=== PATIENT | male | born 1975 | race Caucasian/White ===

== ENCOUNTER 2018-07-10 18:05 | Emergency (ER) | payer OTHER ==
[~2018-07-10] VITALS: Ht 175.3 cm; Wt 89.8 kg
--- NOTE | 2018-07-10 18:14 | ED.ADGEN ---
Past History Past Medical History: Sciatica Adult General Chief Complaint Chief Complaint ".. I have francesco chronic episodes of sciatica...I ve have one now.. I usually can just walk it out... I ve had back xrays and CT... I just need med when I .. 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 Previous workups have been completed with no significant surgical pathology. Patient denies any history of problems with defecation, urination, walking, loss of sensation. No history of fevers. No history of immunosuppression. No history of cancer. No history of recent travel or specific ill contacts. He has not been overseas since deployment to and return [place] in 2004. Recent travel here to [facility] for training . Review of Systems Review of Systems Constitutional: Denies fever or chills [] Eyes: Denies change in visual acuity, redness, or eye pain [] HENT: Denies nasal congestion or sore throat [] Respiratory: Denies cough or shortness of breath [] Cardiovascular: No additional information not addressed in HPI [] GI: Denies abdominal pain, nausea, vomiting, bloody stools or diarrhea [] : Denies dysuria or hematuria [] Musculoskeletal: complaints of Rt. sciatic back pain or joint pain [] Integument: Denies rash or skin lesions [] Neurologic: Denies headache, focal weakness or sensory changes [] Endocrine: Denies polyuria or polydipsia [] All other systems were reviewed and found to be within normal limits, except as documented in this note. Family History Family History Non-contributory Current Medications Current Medications Current Medications Medications (Trade) Dose Ordered Sig/Skyler Start Time Stop Time Status Last Admin Dose Admin Ketorolac Tromethamine (Toradol) 30 mg 1X ONCE 07/10/18 18:45 07/10/18 18:46 DC 07/10/18 18:50 30 MG Methylprednisolone Acetate (DEPO-Medrol IM) 40 mg 1X ONCE 07/10/18 18:45 07/10/18 18:46 DC 07/10/18 18:50 40 MG Orphenadrine Citrate (Norflex) 60 mg 1X ONCE 07/10/18 18:45 07/10/18 18:46 DC 07/10/18 18:51 60 MG Allergies Allergies Allergies Coded Allergies Type Severity Reaction Last Updated Verified No Known Drug Allergies 07/10/18 No Physical Exam Physical Exam Constitutional: Well developed, well nourished, mild distress, non-toxic appearance. [] HENT: Normocephalic, atraumatic, bilateral external ears normal, oropharynx moist, no oral exudates, nose normal. [] Eyes: PERRLA, EOMI, conjunctiva normal, no discharge. [] Neck: Normal range of motion, no tenderness, supple, no stridor. [] Cardiovascular:Heart rate regular rhythm, no murmur [] Lungs & Thorax: Bilateral breath sounds clear to auscultation [] Abdomen: Bowel sounds normal, soft, no tenderness, no masses, no pulsatile masses. [] Large mid line scar ( nail injury to liver- Lap- 2004) Skin: Warm, dry, no erythema, psoriasis rash. [] Back: Mild lumbar muscle spasms and tenderness along the right sciatic nerve , increased tenderness with straight leg lift, no CVA tenderness. [] Extremities: No tenderness, no cyanosis, no clubbing, ROM intact, no edema. [] Neurologic: Alert and oriented X 3, normal motor function, normal sensory function, no focal deficits noted. []DTRs +2 patella. Straight leg lift gives mild exacerbation of right sciatica. Has radiation to mid thigh. Right gluteal area on straight leg lift. Good gait. Psychologic: Affect normal, judgement normal, mood normal. [] Current Patient Data Vital Signs Vital Signs Date Time Temp Pulse Resp B/P (MAP) Pulse Ox O2 Delivery O2 Flow Rate FiO2 07/10/18 19:00 90 20 158/103 (121) 100 Room Air 07/10/18 18:21 98.4 EKG EKG [] Radiology/Procedures Radiology/Procedures Declines radiographic evaluation[] Course & Med Decision Making Course & Med Decision Making Pertinent Labs and Imaging studies reviewed. (See chart for details) Ice packs when necessary. Tylenol and ibuprofen for pain. For marked pain may take Vicoprofen up 4 times a day. Patient also may try Flexeril 10 up to 3 times a day for muscle spasms. Follow-up primary care. If persistent or exacerbation of back pain or other significant changes may need a MRI myelogram to evaluate for impingement. Return if any concerns. [] Final Impression Final Impression 1. Right sciatica 2. Psoriasis [] Dragon Disclaimer Dragon Disclaimer This electronic medical record was generated, in whole or in part, using a voice recognition dictation system. VELVET MAYFIELD MD Jul 10, 2018 18:14
[2018-07-10] MEDS ORDERED: IBUP400T18 PO (18:40)
[2018-07-10] MEDS ORDERED: ACET500T68 PO (18:40)
[2018-07-10] MEDS ORDERED: HYDR-79 PO (18:40)
[2018-07-10] MEDS ORDERED: CYCL-331 PO (18:40)
[2018-07-10] MEDS ORDERED: KETOROLAC 30 MG/ML VIAL. IM ONE (18:45)
[2018-07-10] MEDS ORDERED: methylPREDNISolone ACETATE 40 MG/ML VIAL. IM ONE (18:45)
[2018-07-10] MEDS ORDERED: ORPHENADRINE CITRATE 60 MG/2 ML VIAL. IM ONE (18:45)
[2018-07-10 19:00] VITALS: BP 158/103
== END 2018-07-10 19:00 | disposition home or self-care (01) ==
LOC: ER 18:05 → EDSEX 18:05 → ER 19:00
DX: M54.41 Lumbago with sciatica, right side (principal); L40.9 Psoriasis, unspecified
CPT/HCPCS: 96372; 99284; J1030; J1885; J2360